=== PATIENT | female | born 1990 | race Caucasian/White ===

== ENCOUNTER → 2018-10-18 | Outpatient (CLI) | payer OTHER ==
[~2018-10-18] MED LIST: CEPH500 PO; CIPR500 PO; ERGO400 PO; ETHINYL ESTRADIOL; HYDACE5 PO; IBUP200; INSUASPI; INSUASPI SC; INSULANI; INSULIN PUMP; LEVONORGESTREL; MULVITMINE PO; PERM5TC TOP; RXCEPH500 PO; RXPROACE PO; Tylenol325 MG PO; VENL75ER; Verotin-Gr Cap1 EACH PO; [UNRECOGNIZED DRUG - OTHER]
[2018-10-19 13:55] LABS: Antinuclear Antibody Screen Negative (Negative)
== END | disposition home or self-care (01) ==
LOC: LAB 13:46 → LAB SHORT 13:46
PROVIDERS: Hospitalist
DX: M25.50 Pain in unspecified joint (principal)
CPT/HCPCS: 85651; 86038; 86430